=== PATIENT | male | born 1970 | race Caucasian/White ===

== ENCOUNTER 2020-02-29 03:40 | Emergency (ER) | payer OTHER ==
[~2020-02-29] VITALS: Ht 185.4 cm; Wt 140.9 kg
[2020-02-29 04:04] VITALS: BP 155/80
--- NOTE | 2020-02-29 04:38 | PHYS DOC ---
Past History Past Medical History: Asthma, Diabetes (JUAREZ HALL DO) Past Surgical History: Other Additional Past Surgical Histo: LIPOSUCTION (JUAREZ HALL DO) Alcohol Use: None (JUAREZ HALL DO) General Adult EDM: Chief Complaint: LOWER BACK PAIN OR INJURY HPI: HPI: 49-year-old male presents with left flank pain. Patient was asleep when he woke up suddenly with left leg pain. Patient is relatively comfortable since that time. He has never had pain like this before. He does not recall doing anything that would have caused a back injury. The pain is very behind his groin. It is moderate to severe in intensity. It is a deep cramping sensation. He denies dysuria or increased urinary frequency. Denies fever or chills. (JUAREZ HALL DO) Review of Systems: Review of Systems: Constitutional: Denies fever or chills Eyes: Denies change in visual acuity HENT: Denies nasal congestion or sore throat Respiratory: Denies cough or shortness of breath Cardiovascular: Denies chest pain or edema GI: Denies abdominal pain, nausea, vomiting, bloody stools or diarrhea : Denies dysuria Musculoskeletal: Left flank pain Integument: Denies rash Neurologic: Denies headache, focal weakness or sensory changes Endocrine: Denies polyuria or polydipsia Lymphatic: Denies swollen glands Psychiatric: Denies depression or anxiety (JUAREZ HALL DO) Current Medications: Current Meds: Current Medications Medications (Trade) Dose Ordered Sig/Darcie Start Time Stop Time Status Last Admin Dose Admin Ketorolac Tromethamine (Toradol 30mg Vial) 30 mg 1X ONCE 02/29/20 04:45 02/29/20 04:46 UNV Sodium Chloride 1,000 ml @ 1,000 mls/hr 1X ONCE 02/29/20 04:45 02/29/20 05:44 UNV (JUAREZ HALL DO) Allergies: Allergies: Allergies Coded Allergies Type Severity Reaction Last Updated Verified No Known Drug Allergies 02/29/20 No (JUAREZ HALL DO) Physical Exam: PE: Constitutional: Well developed, well nourished, mild acute distress, non-toxic appearance. [] HENT: Normocephalic, atraumatic, bilateral external ears normal, oropharynx moist, no oral exudates, nose normal. [] Eyes: PERRLA, EOMI, conjunctiva normal, no discharge. [] Neck: Normal range of motion, no tenderness, supple, no stridor. [] Cardiovascular: Heart rate regular rhythm, no murmur [] Lungs & Thorax: Bilateral breath sounds clear to auscultation [] Abdomen: Bowel sounds normal, soft, no tenderness, no masses, no pulsatile m asses. [] Skin: Warm, dry, no erythema, no rash. [] Back: No tenderness, left CVA tenderness. [] Extremities: No tenderness, no cyanosis, no clubbing, ROM intact, no edema. [] Neurologic: Alert and oriented X 3, normal motor function, normal sensory function, no focal deficits noted. [] Psychologic: Affect normal, judgement normal, mood normal. [] (JUAREZ HALL DO) Current Patient Data: Vital Signs: Vital Signs Date Time Temp Pulse Resp B/P (MAP) Pulse Ox O2 Delivery O2 Flow Rate FiO2 02/29/20 04:04 98.2 82 18 155/80 (105) 97 Room Air (JUAREZ HALL DO) EKG: EKG: [] (JUAREZ AHLL DO) Radiology/Procedures: Radiology/Procedures: [] Impressions: Study: CT abdomen/pelvis without intravenous contrast Indication: Left flank pain per Comparison: None. Technique: Helical CT imaging performed of the abdomen and pelvis without the use of intravenous contrast. Sagittal and coronal reformats were obtained. One or more of the following individualized dose reduction techniques were utilized for this examination: 1. Automated exposure control 2. Adjustment of the mA and/or kV according to patient size 3. Use of iterative reconstruction technique. Findings: Inherently limited evaluation without intravenous contrast. Mild hydroureteronephrosis on the left in addition to periureteral and perinephric fat stranding. These findings are on account of a 3 mm nephrolithiasis at the ureterovesicular junction, image 151 series 2. No collecting system obstruction on the right. Hepatic steatosis. The liver is enlarged. Within normal limits gallbladder. No acute abnormality of the pancreas. Mild splenomegaly at 15 cm craniocaudal. No adrenal gland mass. Distended stomach with ingested material. Nonobstructed small bowel. Normal appendix. Multifocal mild colonic wall thickening favored physiologic from underdistention. Note is made that the bowel is not fully evaluated without oral contrast. Scattered diverticuli. Normal size of the prostate. Fat-containing inguinal hernias, left larger than right. A few mildly prominent lymph nodes such as at the katja hepatis on image 60 series 2 are favored reactive given no provided history of a known malignancy. Scattered calcific atherosclerosis. Nonaneurysmal aorta. No free fluid or pneumoperitoneum. Mild gynecomastia. 4.5 mm pleural-based nodule at the right lower lobe. 5.3 mm nodule at the left lower lobe, image 15 series 2. The heart appears to be prominent in size. Scattered chronic/degenerative osseous findings. Diffuse idiopathic skeletal hyperostosis. Impression: 1. Mild left-sided hydroureteronephrosis in the setting of a 3 mm obstructing stone impacted at the ureterovesicular junction. Resultant periureteral and perinephric inflammation. No collecting system obstruction on the right. 2. Hepatic steatosis and hepatosplenomegaly. 3. Colonic diverticulosis without diverticulitis. 4. Left lower lobe pulmonary nodule measuring just over 5 mm. 4.5 mm pleural-based nodule at the right lower lobe. Per Fleischner guidelines, no dedicated follow-up is needed unless there are risk factors for lung malignancy in which case optional CT in 12 months could be performed. 5. Additional chronic observations detailed above. Electronically signed by: TRINA HAWKINS MD (02/29/2020 5:38 AM) [id number] DICTATED AND SIGNED BY: TRINA HAWKINS MD DATE: 02/29/20 0538 CC: JUAREZ HALL DO; SYDNEE BRAXTON MD ~ (JUAREZ HALL DO) Heart Score: Risk Factors: Risk Factors: DM, Current or recent (<one month) smoker, HTN, HLP, family history of CAD, obesity. Risk Scores: Score 0 - 3: 2.5% MACE over next 6 weeks - Discharge Home Score 4 - 6: 20.3% MACE over next 6 weeks - Admit for Clinical Observation Score 7 - 10: 72.7% MACE over next 6 weeks - Early Invasive Strategies (JUAREZ HALL DO) Course & Med Decision Making: Course & Med Decision Making Pertinent Labs and Imaging studies reviewed. (See chart for details) The patient has an obstructing 3 mm stone ureterovesicular junction. See official read for results and other incidental findings. I have given him Toradol and Zofran in the ED. His labs and urinalysis are pending. [] (JUAREZ HALL DO) Course & Med Decision Making Assumed care at shift change, pending urine to rule out. Tract infection. Urine negative, will discharge with appropriate return precautions. (DUSTY ANGUIANO MD) Dragon Disclaimer: Dragon Disclaimer: This electronic medical record was generated, in whole or in part, using a voice recognition dictation system. (JUAREZ HALL DO) Departure Departure: Impression: Primary Impression: Left ureteral calculus Referrals: SYDNEE BRAXTON MD (PCP) Scripts Tamsulosin Hcl (FLOMAX) 0.4 Mg Cap.er.24h 1 CAP PO DAILY for kidney stone for 15 Days, #15 CAP Prov: JUAREZ HALL DO 02/29/20 Hydrocodone Bit/Acetaminophen (NORCO 5-325 TABLET) 1 Each Tablet 1 TAB PO PRN Q6HRS PRN for PAIN, #14 TAB 0 Refills Prov: JUAREZ HALL DO 02/29/20 JUAREZ HALL DO Feb 29, 2020 04:38 DUSTY ANGUIANO MD Feb 29, 2020 14:00
[2020-02-29] MEDS ORDERED: KETOROLAC 30 MG/ML VIAL. IVP ONE (04:45)
[2020-02-29] MEDS ORDERED: IV NORMAL SALINE 1,000ML 1,000 ML IV ONE (04:45)
--- NOTE | 2020-02-29 05:42 | RAD ---
Study: CT abdomen/pelvis without intravenous contrast Indication: Left flank pain per Comparison: None. Technique: Helical CT imaging performed of the abdomen and pelvis without the use of intravenous contrast. Sagittal and coronal reformats were obtained. One or more of the following individualized dose reduction techniques were utilized for this examination: 1. Automated exposure control 2. Adjustment of the mA and/or kV according to patient size 3. Use of iterative reconstruction technique. Findings: Inherently limited evaluation without intravenous contrast. Mild hydroureteronephrosis on the left in addition to periureteral and perinephric fat stranding. These findings are on account of a 3 mm nephrolithiasis at the ureterovesicular junction, image 151 series 2. No collecting system obstruction on the right. Hepatic steatosis. The liver is enlarged. Within normal limits gallbladder. No acute abnormality of the pancreas. Mild splenomegaly at 15 cm craniocaudal. No adrenal gland mass. Distended stomach with ingested material. Nonobstructed small bowel. Normal appendix. Multifocal mild colonic wall thickening favored physiologic from underdistention. Note is made that the bowel is not fully evaluated without oral contrast. Scattered diverticuli. Normal size of the prostate. Fat-containing inguinal hernias, left larger than right. A few mildly prominent lymph nodes such as at the katja hepatis on image 60 series 2 are favored reactive given no provided history of a known malignancy. Scattered calcific atherosclerosis. Nonaneurysmal aorta. No free fluid or pneumoperitoneum. Mild gynecomastia. 4.5 mm pleural-based nodule at the right lower lobe. 5.3 mm nodule at the left lower lobe, image 15 series 2. The heart appears to be prominent in size. Scattered chronic/degenerative osseous findings. Diffuse idiopathic skeletal hyperostosis. Impression: 1. Mild left-sided hydroureteronephrosis in the setting of a 3 mm obstructing stone impacted at the ureterovesicular junction. Resultant periureteral and perinephric inflammation. No collecting system obstruction on the right. 2. Hepatic steatosis and hepatosplenomegaly. 3. Colonic diverticulosis without diverticulitis. 4. Left lower lobe pulmonary nodule measuring just over 5 mm. 4.5 mm pleural-based nodule at the right lower lobe. Per Fleischner guidelines, no dedicated follow-up is needed unless there are risk factors for lung malignancy in which case optional CT in 12 months could be performed. 5. Additional chronic observations detailed above. Electronically signed by: TRINA HAWKINS MD (02/29/2020 5:38 AM) [id number]
[2020-02-29] MEDS ORDERED: HYDR-3165 PO (05:49)
[2020-02-29] MEDS ORDERED: TAMS0.4C97 PO (05:49)
[2020-02-29] MEDS ORDERED: HYDROcodone/APAP 7.5/325MG 1 TAB TABLET PO ONE (06:00)
[2020-02-29 06:01] LABS: CALCIUM 9.4 mg/dL (8.5-10.1); CREATININE 1.6 mg/dL (0.7-1.3); POTASSIUM 4.2 mmol/L (3.5-5.1)
[2020-02-29 06:07] LABS: ALBUMIN 4.2 g/dL (3.4-5.0); ALBUMIN/GLOBULIN RATIO 1.3 (1.0-1.7); TOTAL BILIRUBIN 0.3 mg/dL (0.2-1.0); TOTAL PROTEIN 7.4 g/dL (6.4-8.2)
[2020-02-29 06:21] LABS: BILIRUBIN,URINE NEG (NEG); CLARITY,URINE CLEAR; COLOR,URINE YELLOW; GLUCOSE,URINE 500 mg/dL (NEG); NITRITE,URINE NEG (NEG); UROBILINOGEN,URINE 0.2 mg/dL (0.2 mg/dL)
[2020-02-29 06:22] LABS: BACTERIA,URINE FEW /HPF (0-FEW); RBC,URINE 0 /HPF (0-2); SQUAMOUS EPITHELIAL CELL,UR OCC /LPF; WBC,URINE 0 /HPF (0-4)
[2020-02-29 06:35] LABS: HEMATOCRIT 44.1 % (39.0-53.0); HEMOGLOBIN 14.8 g/dL (13.0-17.5); MEAN CORPUSCULAR HEMOGLOBIN 30 pg (25-35); MEAN CORPUSCULAR HGB CONC 34 g/dL (31-37); MEAN CORPUSCULAR VOLUME 91 fL (79-100); RED BLOOD COUNT 4.87 x10^6/uL (4.30-5.70); RED CELL DISTRIBUTION WIDTH 13.2 % (11.5-14.5); WHITE BLOOD COUNT 8.9 x10^3/uL (4.0-11.0)
[2020-02-29 06:36] LABS: BASO # 0.1 x10^3/uL (0.0-0.2); BASO % 1 % (0-3); EOS # 0.3 x10^3/uL (0.0-0.7); EOS % 4 % (0-3); LYMPH # 2.2 x10^3/uL (1.0-4.8); LYMPH % 25 % (24-48); MONO # 0.9 x10^3/uL (0.0-1.1); MONO % 10 % (0-9); NEUT # 5.4 x10^3uL (1.8-7.7); NEUT % 60 % (31-73); PLATELET COUNT 211 x10^3/uL (140-400)
== END 2020-02-29 06:31 | disposition home or self-care (01) ==
LOC: ER 03:40
DX: N13.2 Hydronephrosis with renal and ureteral calculous obstruction (principal); J45.909 Unspecified asthma, uncomplicated; E11.9 Type 2 diabetes mellitus without complications
CPT/HCPCS: 36415; 74176; 80053; 81001; 85025; 96361; 96374; 99284; J1885; J7030